=== PATIENT | male | born 1955 | race Caucasian/White ===

== ENCOUNTER 2016-12-23 09:35 | Observation (INO) | payer BC ==
[2016-12-23] MEDS ORDERED: NITROGLYCERIN SL TABS 0.4 MG TAB SUBLINGUAL STA ×3 (10:00)
[2016-12-23] MEDS ORDERED: ASPIRIN 81 MG CHEW PO STA (10:00)
--- NOTE | 2016-12-23 10:02 | ED ---
General Adult HPI - General Chief complaint: Chest Pain Stated complaint: chest pain Time Seen by Provider: 12/23/16 09:56 Source: patient, family, RN notes reviewed Mode of arrival: wheelchair Limitations: no limitations - History of Present Illness Initial comments: Patient is a pleasant [age]-year-old male presenting to the emergency department complaining of chest discomfort. Onset of symptoms was a couple of hours ago. Discomfort is described as tightness. Discomfort is somewhat severe rated 8/10. There is occasional radiation to the neck. No associated dyspnea, nausea, or diaphoresis. No change with exertion. No history of similar symptoms previously. No leg pain or swelling. No cough or fever. - Related Data Home Medications Medication Instructions Recorded Confirmed Multivitamin [Men's Multi-Vitamin] 1 tab PO DAILY 01/06/16 12/23/16 Nitroglycerin Sl Tabs [Nitrostat] 0.4 mg SUBLINGUAL Q5M PRN 01/06/16 12/23/16 Aspirin 648 mg PO ONCE 12/23/16 12/23/16 Aspirin/Acetaminophen/Caffeine 2 tab PO Q6H PRN 12/23/16 12/23/16 [Excedrin Extra Strength Caplet] Allergies Allergy/AdvReac Type Severity Reaction Status Date / Time No Known Allergies Allergy Verified 12/23/16 10:12 Review of Systems ROS Statement: Those systems with pertinent positive or pertinent negative responses have been documented in the HPI. ROS Other: All systems not noted in ROS Statement are negative. Constitutional: Denies: fever Eyes: Denies: eye pain ENT: Denies: ear pain Respiratory: Denies: cough, dyspnea Cardiovascular: Reports: chest pain Endocrine: Denies: fatigue Gastrointestinal: Denies: abdominal pain, nausea Genitourinary: Denies: dysuria Musculoskeletal: Denies: back pain Skin: Denies: rash Neurological: Denies: weakness Past Medical History Past Medical History: COPD, Osteoarthritis (OA) Additional Past Medical History / Comment(s): Abnormal stress test. Hx. of hepatitis C. History of Any Multi-Drug Resistant Organisms: None Reported Additional Past Surgical History / Comment(s): Severed R thumb yrs. ago. Past Anesthesia/Blood Transfusion Reactions: No Reported Reaction Past Psychological History: No Psychological Hx Reported Smoking Status: Current every day smoker Past Alcohol Use History: None Reported Additional Past Alcohol Use History / Comment(s): Smokes 1 PPD x 42 yrs. Past Drug Use History: None Reported - Past Family History Mother Family Medical History: CVA/TIA Additional Family Medical History / Comment(s): Stroke General Exam Limitations: no limitations General appearance: alert, in no apparent distress Head exam: Present: atraumatic Eye exam: Present: normal appearance ENT exam: Present: normal oropharynx Neck exam: Present: normal inspection Respiratory exam: Present: normal lung sounds bilaterally. Absent: chest wall tenderness Cardiovascular Exam: Present: regular rate, normal rhythm Expanded Peripheral pulses: 2+: Radial (R), Radial (L), Posterior Tibialis (R), Posterior Tibialis (L) GI/Abdominal exam: Present: soft. Absent: tenderness Extremities exam: Present: normal inspection. Absent: pedal edema, calf tenderness Neurological exam: Present: alert Psychiatric exam: Present: normal affect, normal mood Skin exam: Absent: rash Course Vital Signs 12/23/16 12/23/16 12/23/16 09:38 10:30 10:35 Temperature 97.1 F L Pulse Rate 78 Respiratory 16 Rate Blood Pressure 145/84 153/87 145/78 O2 Sat by Pulse 96 Oximetry 12/23/16 10:40 Temperature Pulse Rate Respiratory Rate Blood Pressure 136/72 O2 Sat by Pulse Oximetry EKG Findings - EKG Comments: EKG Findings:: Normal sinus rhythm at 71. MI 154. QRS 98. QT 418. QTC 454. Normal axis. Normal QRS. Nonspecific Q waves. Medical Decision Making - Medical Decision Making Patient reexamined and resting comfortably in bed. Patient and family updated on results and plan. Case discussed in detail with Dr. dos santos, who will admit for Dr. Matias. - Lab Data Result diagrams: 12/23/16 10:29 12/23/16 10:29 Lab Results 12/23/16 12/23/16 12/23/16 Range/Units 10:29 10:29 10:29 WBC 10.0 (3.8-10.6) k/uL RBC 5.13 (4.30-5.90) m/uL Hgb 14.3 (13.0-17.5) gm/dL Hct 43.4 (39.0-53.0) % MCV 84.5 (80.0-100.0) fL MCH 27.9 (25.0-35.0) pg MCHC 33.0 (31.0-37.0) g/dL RDW 12.8 (11.5-15.5) % Plt Count 309 (150-450) k/uL Neutrophils % 82 % Lymphocytes % 12 % Monocytes % 4 % Eosinophils % 1 % Basophils % 1 % Neutrophils # 8.2 H (1.3-7.7) k/uL Lymphocytes # 1.1 (1.0-4.8) k/uL Monocytes # 0.4 (0-1.0) k/uL Eosinophils # 0.1 (0-0.7) k/uL Basophils # 0.1 (0-0.2) k/uL PT (9.0-12.0) sec INR (<1.1) APTT (22.0-30.0) sec Sodium 142 (137-145) mmol/L Potassium 4.5 (3.5-5.1) mmol/L Chloride 106 (98-107) mmol/L Carbon Dioxide 23 (22-30) mmol/L Anion Gap 13 mmol/L BUN 13 (9-20) mg/dL Creatinine 0.68 (0.66-1.25) mg/dL Est GFR (MDRD) Af Amer >60 (>60 ml/min/1.73 sqM) Est GFR (MDRD) Non-Af >60 (>60 ml/min/1.73 sqM) Glucose 113 H (74-99) mg/dL Calcium 9.2 (8.4-10.2) mg/dL Magnesium 2.0 (1.6-2.3) mg/dL Total Bilirubin 0.7 (0.2-1.3) mg/dL AST 24 (17-59) U/L ALT 29 (21-72) U/L Alkaline Phosphatase 87 (38-126) U/L Total Creatine Kinase 70 (55-170) U/L CK-MB (CK-2) 1.2 (0.0-2.4) ng/mL CK-MB (CK-2) Rel Index 1.7 Troponin I <0.012 (0.000-0.034) ng/mL Total Protein 7.6 (6.3-8.2) g/dL Albumin 4.0 (3.5-5.0) g/dL 12/23/16 Range/Units 10:29 WBC (3.8-10.6) k/uL RBC (4.30-5.90) m/uL Hgb (13.0-17.5) gm/dL Hct (39.0-53.0) % MCV (80.0-100.0) fL MCH (25.0-35.0) pg MCHC (31.0-37.0) g/dL RDW (11.5-15.5) % Plt Count (150-450) k/uL Neutrophils % % Lymphocytes % % Monocytes % % Eosinophils % % Basophils % % Neutrophils # (1.3-7.7) k/uL Lymphocytes # (1.0-4.8) k/uL Monocytes # (0-1.0) k/uL Eosinophils # (0-0.7) k/uL Basophils # (0-0.2) k/uL PT 10.5 (9.0-12.0) sec INR 1.0 (<1.1) APTT 27.4 (22.0-30.0) sec Sodium (137-145) mmol/L Potassium (3.5-5.1) mmol/L Chloride (98-107) mmol/L Carbon Dioxide (22-30) mmol/L Anion Gap mmol/L BUN (9-20) mg/dL Creatinine (0.66-1.25) mg/dL Est GFR (MDRD) Af Amer (>60 ml/min/1.73 sqM) Est GFR (MDRD) Non-Af (>60 ml/min/1.73 sqM) Glucose (74-99) mg/dL Calcium (8.4-10.2) mg/dL Magnesium (1.6-2.3) mg/dL Total Bilirubin (0.2-1.3) mg/dL AST (17-59) U/L ALT (21-72) U/L Alkaline Phosphatase (38-126) U/L Total Creatine Kinase (55-170) U/L CK-MB (CK-2) (0.0-2.4) ng/mL CK-MB (CK-2) Rel Index Troponin I (0.000-0.034) ng/mL Total Protein (6.3-8.2) g/dL Albumin (3.5-5.0) g/dL - Radiology Data Radiology results: image reviewed (Chest x-ray shows no acute process) Disposition Clinical Impression: Chest pain Disposition: ADMITTED IP TO THIS HOSP
[2016-12-23 10:45] LABS: Basophils # (A) 0.1 k/uL (0-0.2); Basophils % (A) 1 %; CH 28.6; Eosinophils # (A) 0.1 k/uL (0-0.7); Eosinophils % (A) 1 %; HCT 43.4 % (39.0-53.0); HDW 2.69; HGB 14.3 gm/dL (13.0-17.5); Luc # (Auto) 0.12; Luc % (Auto) 1; Lymphocytes # (A) 1.1 k/uL (1.0-4.8); Lymphocytes % (A) 12 %; MCH 27.9 pg (25.0-35.0); MCV 84.5 fL (80.0-100.0); Mean Platelet Volume 6.9; Monocytes # (A) 0.4 k/uL (0-1.0); Monocytes % (A) 4 %; Neutrophils # (A) 8.2 k/uL (1.3-7.7); Neutrophils % (A) 82 %; RBC 5.13 m/uL (4.30-5.90); RDW 12.8 % (11.5-15.5); WBC (Perox) 10.11
--- NOTE | 2016-12-23 10:50 | XR ---
EXAMINATION TYPE: XR chest 2V DATE OF EXAM: 12/23/2016 10:45 AM COMPARISON: NONE TECHNIQUE: PA and lateral views submitted. HISTORY: Chest pain FINDINGS: The lungs are clear and there is no pneumothorax, pleural effusion, or focal pneumonia. Hyperinflat ion suggests COPD. IMPRESSION: 1. No acute process.
[2016-12-23 10:52] LABS: Partial Thromboplastin Time 27.4 sec (22.0-30.0); Prothrombin Time 10.5 sec (9.0-12.0)
[2016-12-23 10:58] LABS: ALT 29 U/L (21-72); AST 24 U/L (17-59); Alkaline Phosphatase 87 U/L (38-126); Anion Gap 13 mmol/L; Blood Urea Nitrogen 13 mg/dL (9-20); Calcium 9.2 mg/dL (8.4-10.2); Carbon Dioxide 23 mmol/L (22-30); Chloride 106 mmol/L (98-107); Glucose 113 mg/dL (74-99); Non-African American GFR(MDRD) >60 (>60 ml/min/1.73 sqM); Potassium 4.5 mmol/L (3.5-5.1); Sodium 142 mmol/L (137-145); Total Bilirubin 0.7 mg/dL (0.2-1.3); Total Protein 7.6 g/dL (6.3-8.2)
[2016-12-23 11:09] LABS: Creatine Kinase 70 U/L (55-170)
[2016-12-23 11:22] LABS: Creatine Kinase MB 1.2 ng/mL (0.0-2.4); Troponin I <0.012 ng/mL (0.000-0.034)
[2016-12-23] MEDS ORDERED: HEPARIN SODIUM,PORCINE 5,000 UNIT/ML 1 ML VIAL IV ONE (12:20)
[2016-12-23] MEDS ORDERED: HEPARIN SODIUM,PORCINE 5,000 UNIT/ML 1 ML VIAL IV PRN (12:20)
[2016-12-23] MEDS ORDERED: HEPARIN SODIUM,PORCINE/D5W PMX 25,000 UNIT in DEXTROSE/WATER 1 500ML.BAG IV SCH (12:30)
[2016-12-23] MEDS ORDERED: NICOTINE 21MG/24HR PATCH TRANSDERM STA (12:56)
--- NOTE | 2016-12-23 14:58 | CONS ---
DATE OF CONSULTATION: CHIEF COMPLAINT: Chest pain. Brennon is a 61-year-old gentleman with no significant past medical history who comes to the hospital complaining of chest pain. He describes it as a burning chest discomfort that got worse when he took a deep breath. Mild to moderate intensity, came on at rest, unassociated with diaphoresis and unrelated to exertion without clear-cut relieving or exacerbating factors. At the time of my evaluation, he is pain free and hemodynamically stable. EKG does not reveal ischemic changes. First set of troponin is negative. I am ordering a d-dimer on him. Patient came in with chest pain and underwent cardiac catheterization in December of 2015 when he had mild nonobstructive coronary artery disease. Past medical history is negative for hypertension, diabetes, dyslipidemia. Medications include aspirin and multivitamin. ALLERGIES: No known drug allergies. FAMILY HISTORY: Negative for premature coronary artery disease. SOCIAL HISTORY: Negative for current smoking, EtOH abuse, or drug abuse. REVIEW OF SYSTEMS: HEENT: Unremarkable. CARDIAC: As described above. RESPIRATORY: Negative. GI: Negative. GENITOURINARY: Negative. ALLERGY/IMMUNOLOGY: Negative. MUSCULOSKELETAL: Negative. DERMATOLOGY: Negative. CONSTITUTIONAL: Negative. ONCOLOGICAL: Negative. The rest of the system review is not relevant. On exam, comfortable at rest. Vital signs are stable. There is no jugular venous distention. Carotid upstroke is normal. There is no bruit. Chest exam reveals good air entry bilaterally. Heart exam reveals first and second heart sounds. No gallop. No murmur, no rub. Abdomen is soft, nontender. Exam of extremities did not reveal any edema. Peripheral pulses are felt. EKG, troponin and labs as described above. ASSESSMENT: Atypical chest pain. PLAN: I am going to obtain a d-dimer on him to rule out pulmonary embolism. I will obtain a 2-D echo in the morning. If TN is ruled out and the echo comes back unremarkable, we can discharge him home and outpatient follow-up arranged through our office.
[2016-12-23 17:05] LABS: Creatine Kinase 55 U/L (55-170)
[2016-12-23] MEDS: NITROGLYCERIN SL TABS 0.4 MG TAB SUBLINGUAL PRN (17:13)
[2016-12-23 17:18] LABS: Troponin I <0.012 ng/mL (0.000-0.034)
[2016-12-23] MEDS ORDERED: RX INFO: IV CONTRAST WAS GIVEN 1 EACH MISC MISCELLANE PRN (17:35)
--- NOTE | 2016-12-23 19:12 | CT ---
EXAMINATION TYPE: CT angio chest DATE OF EXAM: 12/23/2016 6:25 PM COMPARISON: NONE HISTORY: Chest pain CT DLP: 216.1 mGycm. Automated exposure control for dose reduction was used. CONTRAST: CTA scan of the thorax is performed with IV Contrast, patient injected with 100 mL of Omnip aque 350, pulmonary embolism protocol. . FINDINGS: LUNGS: There are prominent emphysematous changes noted, but the lungs are grossly clear, and there is no concerning parenchymal mass or nodule. There is no pleural effusion or pneumothorax. The trach eobronchial tree is patent. MEDIASTINUM: There is satisfactory enhancement of the pulmonary artery and its branches, there is no CT evidence for pulmonary embolism. Aorta is unremarkable. There is no cardiomegaly. Pericardial spa pawel negative. Coronary calcifications detected. There are no greater than 1 cm hilar or mediastinal l ymph nodes. No pericardial effusion is seen. OTHER: Are slightly visualized bilateral large renal cystic masses are seen. Would suggest nonurgent renal ultrasound characterization to prove benignity - which is suspected at this time. IMPRESSION: 1. NEGATIVE FOR PULMONARY EMBOLISM OR OTHER ACUTE PROCESS. 2. INCIDENTAL FINDING: CORONARY CALCIFICATIONS AND BILATERAL RENAL CYSTS DISCUSSED.
[2016-12-23] MEDS ORDERED: MORPHINE SULFATE 2 MG/ML SYRINGE IVP PRN (20:06)
[2016-12-23] MEDS ORDERED: ONDANSETRON 4 MG/2 ML VIAL IVP PRN (20:08)
[2016-12-23] MEDS: NITROGLYCERIN OINT 1 INCH/GM PACKET TOPICAL SCH ×2 (20:22→23:16)
[2016-12-23] MEDS: MORPHINE SULFATE 2 MG/ML SYRINGE IVP PRN (22:45)
[2016-12-23 22:47] LABS: Creatine Kinase 56 U/L (55-170)
[2016-12-23 23:01] LABS: Creatine Kinase MB 0.6 ng/mL (0.0-2.4); Troponin I <0.012 ng/mL (0.000-0.034)
[2016-12-23] MEDS: FAMOTIDINE 20 MG TAB PO SCH (23:13)
[2016-12-24] MEDS: MORPHINE SULFATE 2 MG/ML SYRINGE IVP PRN ×3 (01:07→06:45)
[2016-12-24] MEDS: NITROGLYCERIN SL TABS 0.4 MG TAB SUBLINGUAL PRN ×3 (03:48→03:58)
[2016-12-24 03:51] LABS: Mean Platelet Volume 7.5
[2016-12-24 04:17] LABS: Cholesterol 122 mg/dL (<200); HDL Cholesterol 50 mg/dL (40-60); Triglycerides 71 mg/dL (<150)
[2016-12-24] MEDS: NITROGLYCERIN OINT 1 INCH/GM PACKET TOPICAL SCH (05:23)
--- NOTE | 2016-12-24 08:19 | ECHOF ---
Referral Reason: MEASUREMENTS -------- HEIGHT: 182.9 cm WEIGHT: 74.8 kg BP: IVSd: 0.9 cm (0.6 - 1.1) LVIDd: 4.6 cm (3.9 - 5.3) LVPWd: 0.9 cm (0.6 - 1.1) IVSs: 1.4 cm LVIDs: 2.3 cm LVPWs: 1.4 cm Ao Diam: 2.9 cm (2.0 - 3.7) AV Cusp: 2.2 cm (1.5 - 2.6) LA Diam: 3.4 cm (2.7 - 3.8) MV EXCURSION: 17.332 mm (> 18.000) MV EF SLOPE: 103 mm/s (70 - 150) EPSS: 0.8 cm MV E Chente: 0.63 m/s MV DecT: 150 ms MV A Chente: 0.54 m/s MV E/A Ratio: 1.17 RAP: 15.00 mmHg RVSP: 31.10 mmHg FINDINGS -------- Sinus rhythm. This was a technically adequate study. Left ventricular wall thickness is normal. Overall left ventricular systolic function is normal with, an EF between 55 - 60 %. The right ventricle is normal in size and function. The left atrium is normal in size. The right atrium is normal in size. Aortic valve is trileaflet and is mildly thickened. The mitral valve leaflets are mildly thickened. There is trace mitral regurgitation. Trace tricuspid regurgitation present. The right ventricular systolic pressure, as measured by Doppler, is 31.10mmHg. Pulmonic valve appears structurally normal. The aortic root, ascending aorta and aortic arch are normal. The pericardium is normal. CONCLUSIONS -------- 1. Sinus rhythm. 2. There is trace mitral regurgitation. 3. Trace tricuspid regurgitation present. 4. The right ventricular systolic pressure, as measured by Doppler, is 31.10mmHg. 5. Pulmonic valve appears structurally normal. 6. The aortic root, ascending aorta and aortic arch are normal. 7. The pericardium is normal. 8. This was a technically adequate study. 9. Left ventricular wall thickness is normal. 10. Overall left ventricular systolic function is normal with, an EF between 55 - 60 %. 11. The right ventricle is normal in size and function. 12. The left atrium is normal in size. 13. The right atrium is normal in size. 14. Aortic valve is trileaflet and is mildly thickened. 15. The mitral valve leaflets are mildly thickened. WAREHOUSE COORDINATOR: Susanne Gonzalez RDCS
[2016-12-24] MEDS ORDERED: ASPIRIN 325 MG TAB PO SCH (09:00)
[2016-12-24] MEDS: FAMOTIDINE 20 MG TAB PO SCH (10:54)
[2016-12-24] MEDS: ASPIRIN 325 MG TAB PO SCH ×2 (10:54→16:16)
--- NOTE | 2016-12-24 11:20 | PN ---
Mr. Izaguirre is a 61-year-old who presented with symptoms of chest discomfort. The discomfort is worse in certain position of his upper body as well as with inhalation. He continues to have some discomfort on and off. He denies any dizziness or palpitation. He denies any nausea or vomiting. He had a CT scan of the chest that revealed coronary calcification but no evidence of pulmonary embolism and he had an echocardiogram performed as well that showed a preserved left ventricular size and systolic function with no significant valvular abnormality. His medications at this time include IV heparin, Pepcid, nitro paste. PHYSICAL EXAMINATION: Blood pressure 105/50 with the heart rate in the 70s. LUNGS: No wheezes. HEART: Regular rate and rhythm. S1, S2, no S3, no rub. ABDOMEN: Soft, nontender. EXTREMITIES: No edema. Lab data revealed troponin less than 0.012 for 3 samples. Cholesterol 122, LDL of 58. IMPRESSION: 1. Chest discomfort, atypical for ischemic heart disease. 2. Coronary calcification. 3. History of chronic tobacco use. RECOMMENDATIONS: From the cardiac standpoint, I will stop the heparin. The etiology of his symptoms appears to be more pulmonary in status with the change breathing. Because of his calcification of the coronary arteries, he will benefit from a myocardial perfusion imaging that can be done as an outpatient.
[2016-12-24 11:52] VITALS: BP 113/57; PULSE 67; RESP 18; TEMP 97.4
[2016-12-24] MEDS ORDERED: methylPREDNISolone SOD SUCCI 125 MG/2 ML VIAL IV STA (16:01)
[2016-12-24] MEDS ORDERED: methylPREDNISolone SOD SUCCI 125 MG/2 ML VIAL IM ONE (16:28)
--- NOTE | 2016-12-24 17:21 | P.HPIM ---
History of Present Illness H&P Date: 12/24/16 (DDischarge summary as well) This is a 61-year-old woman that comes in the hospital with the acute onset chest pressure midsternal location nonradiating. Patient stated that he woke up with the pain day of admission. Patient stated that his pain was 8 out of 10. Aggravating factors was deep breathing was not associated with any worse cough. Patient denies having any alleviating factors. In the emergency room EKG did not reveal ST-T wave changes. A CT angiogram was done which showed coronary calcifications however no pulmonary was was found. Echocardiogram was within normal limits with the EF of 55-60%. No wall motion of the mountains were noted. Today patient states that he does have some difficulty, pressure in his chest midsternal location similar pain worsened with deep breathing. Patient smokes about a pack of cigarettes daily times last 40 years. Review of Systems All systems: negative (Noted in HPI) Past Medical History Past Medical History: COPD, Osteoarthritis (OA) Additional Past Medical History / Comment(s): Abnormal stress test. liver bx, rt inguinal hernia, fall/concussion. Hx. of hepatitis C-received treatment for it. emphysema, upper bridge, History of Any Multi-Drug Resistant Organisms: None Reported Past Surgical History: Heart Catheterization Additional Past Surgical History / Comment(s): part of R thumb severed by table saw yrs. ago.fatty tumor removed from forehead Past Anesthesia/Blood Transfusion Reactions: No Reported Reaction Past Psychological History: No Psychological Hx Reported Additional Psychological History / Comment(s): pt lives with his tamir in a single story home that has 2 steps in which to enter.has 2 dogs, pt is independant. 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 Smoking Status: Current every day smoker Past Alcohol Use History: None Reported Additional Past Alcohol Use History / Comment(s): Smokes 1 PPD x 42 yrs. Past Drug Use History: None Reported - Past Family History Mother Family Medical History: CVA/TIA Additional Family Medical History / Comment(s): Stroke Father Family Medical History: Liver Disease Additional Family Medical History / Comment(s): cirrhosis of the liver, "heart problems" Medications and Allergies Home Medications Medication Instructions Recorded Confirmed Type Multivitamin [Men's Multi-Vitamin] 1 tab PO DAILY 01/06/16 12/23/16 History Nitroglycerin Sl Tabs [Nitrostat] 0.4 mg SUBLINGUAL Q5M PRN 01/06/16 12/23/16 History Aspirin 648 mg PO ONCE 12/23/16 12/23/16 History Aspirin/Acetaminophen/Caffeine 2 tab PO Q6H PRN 12/23/16 12/23/16 History [Excedrin Extra Strength Caplet] Allergies Allergy/AdvReac Type Severity Reaction Status Date / Time No Known Allergies Allergy Verified 12/23/16 10:12 Physical Exam Vitals: Vital Signs Temp Pulse Pulse Resp BP BP Pulse Ox 12/24/16 11:51 97.4 F L 67 18 113/57 93 L 12/24/16 07:55 99.1 F 71 16 105/57 93 L 12/24/16 03:52 98.5 F 74 18 112/67 92 L 12/24/16 03:28 18 12/23/16 23:55 18 12/23/16 23:50 86 18 122/67 92 L 12/23/16 20:00 18 12/23/16 19:49 98.7 F 67 18 139/70 98 12/23/16 18:40 99.2 F 68 18 138/70 98 12/23/16 17:39 99.9 F H 65 18 140/73 97 Intake and Output 12/24/16 12/24/16 12/24/16 06:59 14:59 22:59 Intake Total 157.898 660 Balance 157.898 660 Intake: Intake, IV Titration 157.898 Amount Heparin Sodium,Porcine/ 157.898 D5w Pmx 25,000 unit In Dextrose/Water 1 500ml. bag @ 12 UNITS/KG/HR 17. 96 mls/hr IV .Q24H JUDIE Rx #:[id number] Oral 660 Other: Voiding Method Toilet # Voids 1 Physical exam Gen. appearance oriented 3 in no distress Neck is supple no JVD Lungs diminished breath sounds no wheezing or rhonchi appreciated however almost silent chest. Heart S1-S2 heard regular rate and rhythm no murmurs appreciated Abdomen is soft nontender no organomegaly bowel sounds are intact Neurologically cranial nerves II-12 grossly intact no focal motor or sensory deficits noted Skin no abnormalities appreciated Results CBC & Chem 7: 12/24/16 03:41 12/23/16 10:29 Labs: Abnormal Lab Results - Last 24 Hours (Table) 12/24/16 Range/Units 03:41 APTT 32.8 H (22.0-30.0) sec Assessment and Plan Plan: 1 atypical chest pain likely secondary to pleurisy. #2 mild exacerbation of COPD that is not diagnosed #3 ongoing tobacco use #4 history of hypertension Plan Patient is to have an outpatient stress test as patient was found to have coronary calcifications. Patient will be given a dose of Solu-Medrol 125 mg. Thereafter to take prednisone 20 mg for the next 6 days. We'll also prescribe the patient albuterol. Patient is recommended to follow- up with a asset analyst to undergo PFTs. Is recommended to follow-up with his primary care as well.
== END 2016-12-24 17:11 | disposition home or self-care (01) ==
LOC: EC 09:35 → 3SUR 12:20 → 3OBS 17:49
PROVIDERS: ADMIT Hospitalist; ATTEND Hospitalist
DX: R07.89 Other chest pain (principal); I25.10 Atherosclerotic heart disease of native coronary artery without angina pectoris; F17.210 Nicotine dependence, cigarettes, uncomplicated; I10 Essential (primary) hypertension; J44.1 Chronic obstructive pulmonary disease with (acute) exacerbation; Z86.19 Personal history of other infectious and parasitic diseases
CPT/HCPCS: 99285 ×2; 96365 ×2; 96366 ×6; 96376 ×2; 36415; 93005; 93306; 85379; 80061; 80053; 82550; 82553; 83735; 84484; 85025; 85049; 85610; 85730 ×2; 71020; 71275; G0378 ×2; S4990; J1644 ×2; J2930; Q9967; J2270 ×2; 96372